=== PATIENT | male | born 1975 | race Caucasian/White ===

== ENCOUNTER 2021-03-16 14:54 | Emergency (ER) | payer OTHER ==
[~2021-03-16] VITALS: Ht 175.3 cm; Wt 93.0 kg
[2021-03-16] MEDS ORDERED: PROBIOTIC1 EAC7 PO (15:12)
[2021-03-16] MEDS ORDERED: OMEPRAZOLE40 MG PO (15:12)
[2021-03-16 15:41] LABS: ABSOLUTE EOSINOPHILS 0.3 thou/uL (0.0-0.7); ABSOLUTE LYMPHOCYTES 1.9 thou/uL (0.8-5.3); ABSOLUTE MONOCYTES 0.3 thou/uL (0.0-1.2); ABSOLUTE NEUTROPHILS 2.4 thou/uL (1.6-8.1); BASOPHILS 0.9 %; EOSINOPHILS 6.7 %; HEMATOCRIT 49.6 % (42.0-52.0); HEMOGLOBIN 17.4 gm/dL (14.0-18.0); LYMPHOCYTES 37.8 %; MCHC 35.1 g/dL (28.0-37.0); MCV 85.5 fL (80.0-100.0); MONOCYTES 5.9 %; MPV 6.7 fl. (7.2-11.1); NUCLEATED RBCS 0 /100WBC; PLATELET COUNT* 221 thou/uL (150-400); POLYS 48.7 %; RBC 5.79 mil/uL (4.50-6.00); WBC 4.9 thou/uL (4.0-11.0)
[2021-03-16 15:49] LABS: CALCIUM 9.5 mg/dL (8.5-10.1); CREATININE 1.2 mg/dL (0.6-1.3); POTASSIUM 4.3 mmol/L (3.5-5.1)
[2021-03-16 15:58] LABS: ALBUMIN 4.5 g/dL (3.4-5.0); TOTAL BILIRUBIN 0.7 mg/dL (<0.1-1.0); TOTAL PROTEIN 7.5 g/dL (6.4-8.2)
[2021-03-16] MEDS ORDERED: FLEXERIL PO ×2 (16:23→16:30)
[2021-03-16] MEDS ORDERED: APAP W/CODEINE1 TA2 PO (16:30)
[2021-03-16 16:44] VITALS: BP 150/82
== END 2021-03-16 16:46 | disposition home or self-care (01) ==
LOC: M.ERS 14:54
PROVIDERS: Physician Assistant
DX: M79.661 Pain in right lower leg (principal); Z79.899 Other long term (current) drug therapy